=== PATIENT | male | born 1965 | race Caucasian/White ===

== ENCOUNTER 2020-03-29 14:40 | Outpatient (REF) | payer OTHER, SELFPAY ==
[2020-03-29 17:48] LABS: Hematocrit 39.8 % (42-52); Hemoglobin 13.1 g/dl (14.0-18.0); Mean Corpuscular HGB Conc 32.9 g/dl (31.0-36.0); Mean Corpuscular Hemoglobin 30.9 pg (27.0-33.0); Mean Corpuscular Volume 93.9 fL (80-98); Mean Platelet Volume 10.5 fL (9.4-12.4); Platelet Count 261 X10*3/uL (160-400); Red Blood Count 4.24 X10*6/uL (4.60-5.80); Red Cell Distribution Width 11.9 % (11.0-16.0); White Blood Count 7.4 X10*3/uL (4.8-10.8)
[2020-03-29 18:17] LABS: Alanine Aminotransferase 29 U/L (0-40); Albumin Level 4.5 g/dL (3.5-5.0); Alkaline Phosphatase 52 U/L (39-117); Anion Gap 14 (12-20); Aspartate Amino Transferase 23 U/L (5-37); Bilirubin Total 0.5 mg/dL (0.0-1.0); Blood Urea Nitrogen 22 mg/dL (9-16); Calcium 9.1 mg/dL (8.4-10.2); Carbon Dioxide 25 mmol/L (22-29); Chloride 107 mmol/L (96-108); Estimated Glomerular Filt Rate > 60; Glucose Random 90 mg/dL (60-115); Potassium 4.6 mmol/L (3.3-5.1); Sodium 141 mmol/L (135-145); Total Protein 6.9 g/dL (6.5-8.0)
[2020-03-29 18:32] LABS: Erythrocyte Sedimentation Rate 4 MM/HR (0-15)
== END 2020-03-29 14:41 | disposition home or self-care (01) ==
LOC: HO.MANLDS 14:40
PROVIDERS: PCP Internal Medicine; Visit Provider Internal Medicine
DX: R51.9 Headache, unspecified (principal)
CPT/HCPCS: 36415; 80053; 85027; 85652

== ENCOUNTER 2021-02-25 13:49 | Outpatient (REF) | payer OTHER, SELFPAY ==
[2021-02-25 19:35] LABS: MANUAL DIFF FLAG NO
[2021-02-25 19:37] LABS: Basophils Absolute Auto 0.1 X10*3/uL (0.0-0.2); Basophils Percent Auto 0.6 % (0-2); Eosinophils Absolute Auto 0.1 X10*3/uL (0.0-0.4); Eosinophils Percent Auto 0.8 % (0-4); Imm Gran Abs Auto 0.06 X10*3/uL (0.00-0.03); Imm Gran Pct Auto 0.7 % (0.0-0.4); Lymphocytes Percent Auto 33.2 % (20-40); Mean Corpuscular HGB Conc 34.1 g/dl (31.0-36.0); Mean Corpuscular Volume 93.8 fL (80.0-98.0); Mean Platelet Volume 9.8 fL (9.4-12.4); Monocytes Absolute Auto 0.5 X10*3/uL (0.1-1.2); Monocytes Percent Auto 5.4 % (2-11); Neutrophils Absolute Auto 5.3 x10*3/uL (2.0-8.3); Neutrophils Percent Auto 59.3 % (45-73); Platelet Count 269 X10*3/uL (160-400); Red Blood Count 4.37 X10*6/uL (4.60-5.80); Red Cell Distribution Width 11.9 % (11.0-16.0); White Blood Count 8.9 X10*3/uL (4.8-10.8)
[2021-02-25 19:42] LABS: Prothrombin Time 10.9 SEC (9.9-13.0)
[2021-02-25 19:58] LABS: Estimated Average Glucose 117 mg/dL; Hemoglobin A1c % 5.7 %
[2021-02-25 20:05] LABS: Iron 94 mcg/dL (45-160); Percent Iron Saturation 25 % (15-50); Total Iron Binding Capacity 383 mcg/dL (228-428); Unsaturated Iron Binding 289 ug/dL
[2021-02-25 20:32] LABS: Ferritin 125 ng/mL (20-250)
[2021-02-25 20:34] LABS: Thyroid Stimulating Hormone 2.43 uIU/mL (0.32-4.0); Vitamin D 25-OH Total 20.1 ng/mL (>30)
[2021-02-25 20:38] LABS: Folate 13.4 ng/mL (> or = 4.0); Vitamin B12 542 pg/mL (200-900)
== END 2021-02-25 13:50 | disposition home or self-care (01) ==
LOC: HO.MANLDS 13:49
PROVIDERS: PCP Physician Assistant; Visit Provider Physician Assistant
DX: G61.82 Multifocal motor neuropathy (principal)
CPT/HCPCS: 36415; 82306; 82607; 82728; 82746; 83036; 83540; 84439; 84443; 85025; 85610

== ENCOUNTER 2022-11-03 15:18 | Outpatient (REF) | payer OTHER, SELFPAY ==
[2022-11-03 17:57] LABS: Alanine Aminotransferase 25 U/L (0-40); Albumin Level 4.6 g/dL (3.5-5.0); Alkaline Phosphatase 60 U/L (39-117); Anion Gap 11 (12-20); Aspartate Amino Transferase 23 U/L (5-37); Bilirubin Total 0.4 mg/dL (0.0-1.0); Blood Urea Nitrogen 17 mg/dL (9-16); C Reactive Protein 0.18 mg/dL (< or = 0.50); Calcium 9.6 mg/dL (8.4-10.2); Carbon Dioxide 27 mmol/L (22-29); Chloride 107 mmol/L (96-108); Estimated Glomerular Filt Rate > 60; Glucose Random 81 mg/dL (60-115); Potassium 4.5 mmol/L (3.3-5.1); Sodium 140 mmol/L (135-145); Total Protein 7.5 g/dL (6.5-8.0)
[2022-11-03 18:04] LABS: Thyroid Stimulating Hormone 2.53 uIU/mL (0.32-4.0); Vitamin D 25-OH Total 51.8 ng/mL (>30)
[2022-11-03 18:24] LABS: Folate 14.1 ng/mL (> or = 4.0); Vitamin B12 423 pg/mL (200-900)
[2022-11-03 19:54] LABS: Erythrocyte Sedimentation Rate 7 MM/HR (0-15)
[2022-11-04 05:20] LABS: Estimated Average Glucose 108 mg/dL; Hemoglobin A1c % 5.4 % (<6.0)
== END 2022-11-03 15:19 | disposition home or self-care (01) ==
LOC: HO.MANLDS 15:18
PROVIDERS: Visit Provider Physician Assistant
DX: F10.20 Alcohol dependence, uncomplicated (principal); G61.82 Multifocal motor neuropathy; R73.01 Impaired fasting glucose
CPT/HCPCS: 36415; 80053; 82306; 82550; 82607; 82746; 83036; 84439; 84443; 85652; 86140

== ENCOUNTER 2022-11-04 | Outpatient (REF) | payer OTHER, SELFPAY ==
[2022-11-09 09:08] LABS: Vitamin B1 17
== END 2022-11-04 00:01 | disposition home or self-care (01) ==
LOC: HO.MANLDS
PROVIDERS: Visit Provider Physician Assistant
DX: F10.20 Alcohol dependence, uncomplicated (principal)
CPT/HCPCS: 36415; 84425

== ENCOUNTER 2023-08-23 10:40 | Outpatient (REF) | payer OTHER, SELFPAY ==
[2023-08-23 13:33] LABS: MANUAL DIFF FLAG NO
[2023-08-23 13:48] LABS: Basophils Absolute Auto 0.1 X10*3/uL (0.0-0.2); Basophils Percent Auto 0.9 % (0-2); Eosinophils Absolute Auto 0.1 X10*3/uL (0.0-0.4); Eosinophils Percent Auto 1.2 % (0-4); Hematocrit 42.3 % (42.0-52.0); Imm Gran Abs Auto 0.03 X10*3/uL (0.00-0.03); Imm Gran Pct Auto 0.5 % (0.0-0.4); Lymphocytes Absolute Auto 2.1 X10*3/uL (1.2-4.9); Mean Corpuscular HGB Conc 33.1 g/dl (31.0-36.0); Mean Corpuscular Hemoglobin 31.1 pg (27.0-33.0); Mean Platelet Volume 10.3 fL (9.4-12.4); Monocytes Absolute Auto 0.4 X10*3/uL (0.1-1.2); Monocytes Percent Auto 6.5 % (2-11); Neutrophils Percent Auto 53.9 % (45-73); Platelet Count 271 X10*3/uL (160-400); White Blood Count 5.7 X10*3/uL (4.8-10.8)
[2023-08-23 14:09] LABS: Estimated Average Glucose 114 mg/dL; Hemoglobin A1c % 5.6 % (<6.0)
[2023-08-23 14:10] LABS: Alanine Aminotransferase 17 U/L (0-40); Albumin Level 4.2 g/dL (3.5-5.0); Alkaline Phosphatase 53 U/L (39-117); Anion Gap 10 (12-20); Aspartate Amino Transferase 17 U/L (5-37); Bilirubin Total 0.2 mg/dL (0.0-1.0); Blood Urea Nitrogen 16 mg/dL (9-16); C Reactive Protein 0.46 mg/dL (< or = 0.50); Calcium 9.9 mg/dL (8.4-10.2); Carbon Dioxide 29 mmol/L (22-29); Chloride 109 mmol/L (96-108); Estimated Glomerular Filt Rate > 60; Glucose Random 79 mg/dL (60-115); Iron 84 mcg/dL (45-160); Magnesium 2.2 mg/dL (1.6-2.6); Percent Iron Saturation 29 % (15-50); Potassium 4.9 mmol/L (3.3-5.1); Sodium 143 mmol/L (135-145); Total Iron Binding Capacity 287 mcg/dL (228-428); Unsaturated Iron Binding 203 ug/dL
[2023-08-23 14:30] LABS: Cortisol Random 12.6 ug/dL
[2023-08-23 14:31] LABS: Erythrocyte Sedimentation Rate 6 MM/HR (0-15)
[2023-08-23 14:37] LABS: Folate 8.5 ng/mL (> or = 4.0); Vitamin B12 367 pg/mL (200-900)
[2023-08-23 14:44] LABS: Ferritin 119 ng/mL (20-250); Free T4 (Free Thyroxine) 0.94 ng/dL (0.71-1.85); Thyroid Stimulating Hormone 0.94 uIU/mL (0.32-4.0)
[2023-08-24 17:53] LABS: Lyme Abs Screen <0.90 index
[2023-08-27 15:23] LABS: Aldolase 3.5 U/L (<=8.1)
[2023-08-28 11:38] LABS: Testosterone, Free 51.6 pg/mL (35.0-155.0); Testosterone, Total 434 ng/dL (250-1100)
== END 2023-08-23 10:41 | disposition home or self-care (01) ==
LOC: HO.MANLDS 10:40
PROVIDERS: Visit Provider Physician Assistant
DX: G61.82 Multifocal motor neuropathy (principal); R53.83 Other fatigue; M62.50 Muscle wasting and atrophy, not elsewhere classified, unspecified site; M79.671 Pain in right foot
CPT/HCPCS: 36415; 80053; 82085; 82306; 82533; 82550; 82607; 82728; 82746; 83036; 83540; 83735; 84402; 84403; 84439; 84443; 84550; 85025; 85652; 86140; 86617; 86618

== ENCOUNTER 2024-09-06 18:32 | Outpatient (REF) | payer OTHER, SELFPAY ==
[2024-09-07 12:18] LABS: E. coli EAEC Not Detected (Not Detect.); E. coli EPEC Not Detected (Not Detect.); E. coli ETEC Not Detected (Not Detect.); E. coli STEC Not Detected (Not Detect.); Shigella sp./EIEC Not Detected (Not Detect.)
[2024-09-13 20:44] LABS: Calprotectin, Fecal <5 mcg/g
== END 2024-09-06 18:33 | disposition home or self-care (01) ==
LOC: HO.MANLNP 18:32
PROVIDERS: Visit Provider Physician Assistant
DX: R19.5 Other fecal abnormalities (principal)
CPT/HCPCS: 83993; 87507